=== PATIENT | female | born 1985 | race African-American/Black ===

== ENCOUNTER 2016-11-17 14:40 | Emergency (ER) | payer MEDICAID ==
[~2016-11-17] VITALS: Ht 154.9 cm; Wt 66.4 kg
[~2016-11-17 14:40] MED LIST: ADDE10 PO; ALPR1TAB3 PO; FEXO15TA PO; LAMO150T PO; LOMO2.5T PO; NORE1TAB PO; PRAV10TA PO; PROM25TA5 PO; RISP2TAB37 PO
[2016-11-17 14:42] VITALS: BP 123/59; PULSE 96; RESP 18; TEMP 98.7; O2SAT 98
--- NOTE | 2016-11-17 17:48 | PD ---
HPI Chief Complaint: GI Complaint Time Seen by Provider: 17:48 Travel History International Travel<30 days: No Contact w/Intl Traveler<30days: No Traveled to known affect area: No History of Present Illness HPI 31-year-old female presents to the ED for evaluation of 5 day history of body aches, sinus congestion, sore throat, nausea, nonbloody diarrhea. Gradual onset. She endorses chills, clear rhinorrhea, right-sided ear pressure, occasional nonproductive cough, increased urinary urgency. She denies headache , dizziness, neck pain, anorexia, vomiting, dysuria, vaginal discharge. Endorses similar symptoms and her daughter. She states that she lives in a house with black mold and thinks this may be the source of her medical problem. She denies risk of , states that she has not had sex with a male partner in years. PFSH Past Medical History Anxiety: Yes Diminished Hearing: No ?: Not LMP: 11/17/2016 : 3 Para: 3 : 1 Past Surgical History Section: Yes (x3) Gynecologic Surgery: Yes (C SECTION) Social History Alcohol Use: Yes (SOCIALLY) Tobacco Use: No Substance Use: No Allergies-Medications (Allergen,Severity, Reaction): Coded Allergies: No Known Allergies (Verified , 09/24/16) Reported Meds & Prescriptions Reported Meds & Active Scripts Active Imodium A-D (Loperamide HCl) 2 Mg Tab 2 Mg PO DIRECTED PRN One tablet after each loose stool. Not to exceed 8 tablets per day. Fluticasone Nasal [place] 50 Mcg/Act Naspr 100 Mcg EACH NARE DAILY 14 Days 50 mcg/spray Ibuprofen 600 Mg Tab 600 Mg PO Q8HR PRN Lomotil (Diphenoxylate-Atropine) 2.5-0.025 Mg Tab 1 Tab PO Q6H PRN Phenergan (Promethazine HCl) 25 Mg Tab 25 Mg PO Q6H PRN Necon /7/7 (Norethindrone-Ethinyl Estradiol) 0.5/0.75/1-35 Mg-Mcg Tab 1 Tab PO DAILY Pravastatin 10 Mg Tab 10 Mg PO DAILY Aniya Allergy (Fexofenadine HCl) 180 Mg Tab 180 Mg PO DAILY Reported Lamotrigine 150 Mg Tab 150 Mg PO DAILY Risperdal (Risperidone) 2 Mg Tab 2 Mg PO DAILY Alprazolam 1 Mg Tab 2 Mg PO BID PRN Adderall (Amphetamine-Dextroamphetamine) 10 Mg Tab 10 Mg PO BID Avoid late evening doses. Space doses at least 4 to 6 hours if more than once/day dosing. Review of Systems Except as stated in HPI: all other systems reviewed are Neg Physical Exam Narrative GENERAL: Well-nourished, well-developed nontoxic-appearing black female in no acute distress. SKIN: Warm and dry. Multiple facial and body piercings HEAD: Normocephalic. Atraumatic. EYES: No scleral icterus. No injection or drainage. PERRLA. EOMI. ENT: Pearly whit[place] tympanic membranes bilaterally. Nasal mucosa is moist, bluish , boggy. Oropharynx without erythema, edema or exudate. NECK: Supple, trachea midline. No JVD or lymphadenopathy. CARDIOVASCULAR: Regular rate and rhythm without murmurs, gallops, or rubs. 2+ DP and radial pulses bilaterally. RESPIRATORY: Breath sounds clear and equal bilaterally. No accessory muscle use. GASTROINTESTINAL: Abdomen soft, non-tender, nondistended. + Bowel sounds . Positive suprapubic tenderness. MUSCULOSKELETAL: No cyanosis, or edema. The patient is ambulatory, is observed to walk with a normal gait. BACK: Nontender without obvious deformity. No CVA tenderness. Data Data Last Documented VS Vital Signs Date Time Temp Pulse Resp B/P Pulse Ox O2 Delivery O2 Flow Rate FiO2 11/17/16 19:43 85 16 128/79 99 Room Air 11/17/16 14:42 98.7 Orders Influenzae A/B Antigen (11/17/16 17:21) Ibuprofen (Motrin) (11/17/16 18:15) Ondansetron Odt (Zofran Odt) (11/17/16 18:15) Urinalysis - C+S If Indicated (11/17/16 18:23) Complete Blood Count With Diff (11/17/16 18:23) Comprehensive Metabolic Panel (11/17/16 18:23) Potassium Chloride (Kcl) (11/17/16 19:30) Labs Laboratory Tests Test 11/17/16 11/17/16 18:30 18:40 White Blood Count 6.0 TH/MM3 Red Blood Count 3.87 MIL/MM3 Hemoglobin 12.4 GM/DL Hematocrit 36.9 % Mean Corpuscular Volume 95.3 FL Mean Corpuscular Hemoglobin 32.0 PG Mean Corpuscular Hemoglobin 33.6 % Concent Red Cell Distribution Width 12.3 % Platelet Count 249 TH/MM3 Mean Platelet Volume 8.9 FL Neutrophils (%) (Auto) 50.1 % Lymphocytes (%) (Auto) 43.1 % Monocytes (%) (Auto) 5.3 % Eosinophils (%) (Auto) 1.1 % Basophils (%) (Auto) 0.4 % Neutrophils # (Auto) 3.0 TH/MM3 Lymphocytes # (Auto) 2.6 TH/MM3 Monocytes # (Auto) 0.3 TH/MM3 Eosinophils # (Auto) 0.1 TH/MM3 Basophils # (Auto) 0.0 TH/MM3 CBC Comment DIFF FINAL Differential Comment Sodium Level 140 MEQ/L Potassium Level 3.1 MEQ/L Chloride Level 105 MEQ/L Carbon Dioxide Level 27.1 MEQ/L Anion Gap 8 MEQ/L Blood Urea Nitrogen 9 MG/DL Creatinine 0.90 MG/DL Estimat Glomerular Filtration 88 ML/MIN Rate Random Glucose 93 MG/DL Calcium Level 8.3 MG/DL Total Bilirubin 0.5 MG/DL Aspartate Amino Transf 13 U/L (AST/SGOT) Alanine Aminotransferase 15 U/L (ALT/SGPT) Alkaline Phosphatase 34 U/L Total Protein 6.4 GM/DL Albumin 3.4 GM/DL Urine Color YELLOW Urine Turbidity CLEAR Urine pH 6.5 Urine Specific [place] 1.021 Urine Protein TRACE mg/dL Urine Glucose (UA) NEG mg/dL Urine Ketones NEG mg/dL Urine Occult Blood NEG Urine Nitrite NEG Urine Bilirubin NEG Urine Urobilinogen 2.0 MG/DL Urine Leukocyte Esterase NEG Urine RBC 1 /hpf Urine WBC 3 /hpf Urine Squamous Epithelial 3 /hpf Cells Urine Mucus FEW /lpf Microscopic Urinalysis Comment CULT NOT INDICATED MDM Medical Decision Making Medical Screen Exam Complete: Yes Emergency Medical Condition: Yes Differential Diagnosis Environmental allergies versus viral syndrome versus mild exposure versus other Narrative Course 31-year-old female presents to the ED for evaluation of 5 day history of body aches, sinus congestion, sore throat, nausea, nonbloody diarrhea. Gradual onset. She endorses chills, clear rhinorrhea, right-sided ear pressure, occasional nonproductive cough, increased urinary urgency. She denies headache , dizziness, neck pain, anorexia, vomiting, dysuria, vaginal discharge. Endorses similar symptoms and her daughter. She states that she lives in a house with black mold and thinks this may be the source of her medical problem. Denies risk of . Vitals reviewed. Physical exam reveals a nontoxic- appearing black female in no acute distress. The nasal mucosa is bluish and boggy. Oropharynx without erythema, edema or exudates. Abdomen soft, mild suprapubic tenderness. Patient was administered ibuprofen, Zofran. CBC is unremarkable. CMP reveals hypokalemia 3.1. No indication for culture and UA. Influenza negative. Patient administered 40 mEq potassium by mouth. Review of the record reveals patient has been here multiple times with the same complaints. Patient was prescribed short course of Imodium, Flonase, ibuprofen. She is instructed to avoid known allergens, take medications as prescribed, follow up with the primary care. She indicated understanding of instructions. She is amenable to plan of care. She is stable and discharged home. Diagnosis Primary Impression: Nausea Additional Impressions: Mold exposure Diarrhea Qualified Code: R19.7 - Diarrhea, unspecified type Environmental allergies Hypokalemia, gastrointestinal losses Referrals: Primary Care Physician Patient Instructions: Acute Diarrhea (ED), General Instructions Additional Instructions: Rest, hydrate. Avoid exposure to mold as possible. Ibuprofen as needed for continued body aches. Utilize fluticasone spray 2 puffs in each nostril daily. Take Imodium as needed for continuing diarrhea. 2 tablets in the morning. One tablet after each episode of diarrhea. No more than 8 tablets daily. Follow-up with her primary care provider. Return to the ED for any urgent or emergent medical condition. Med/Other Pt SpecificInfo: Prescription(s) given Scripts Loperamide (Imodium A-D)2 Mg Tab2 Mg PO DIRECTED PRN (DIARRHEA) #6 TAB Ref 0 One tablet after each loose stool. Not to exceed 8 tablets per day. Prov:Chao Sullivan MD 11/17/16 Fluticasone Nasal [place] 50 Mcg/Act [id number] Mcg EACH NARE DAILY 14 Days Ref 0 50 mcg/spray Prov:Chao Sullivan MD 11/17/16 Ibuprofen 600 Mg [id number] Mg PO Q8HR PRN (PAIN) #12 TAB Ref 0 Prov:Chao Sullivan MD 11/17/16 Disposition: 01 DISCHARGE HOME Condition: Stable Suri Krishna Nov 17, 2016 17:48
[2016-11-17] MEDS ORDERED: ONDANSETRON ODT 4 MG TAB PO ONE (18:15)
[2016-11-17] MEDS ORDERED: IBUPROFEN 600 MG TAB PO ONE (18:15)
[2016-11-17 18:48] LABS: BASOPHIL % 0.4 % (0.0-2.0); EOSINOPHIL # 0.1 TH/MM3 (0-0.4); EOSINOPHIL % 1.1 % (0.0-4.0); HEMATOCRIT 36.9 % (35.0-46.0); HEMO FLAGS DIFF FINAL; LYMPH % 43.1 % (9.0-44.0); LYMPHOCYTE # 2.6 TH/MM3 (1.0-4.8); MEAN CELL VOLUME 95.3 FL (80.0-100.0); MEAN CORPUSCULAR HGB CONC 33.6 % (32.0-36.0); MONO % 5.3 % (0.0-8.0); NEUT % 50.1 % (16.0-70.0); PLATELET COUNT 249 TH/MM3 (150-450); RED BLOOD COUNT 3.87 MIL/MM3 (4.00-5.30); RED CELL DISTRIBUTION WIDTH 12.3 % (11.6-17.2)
[2016-11-17 19:03] LABS: ANION GAP 8 MEQ/L (5-15); AST (GOT) 13 U/L (15-37); BICARBONATE 27.1 MEQ/L (21.0-32.0); BLOOD UREA NITROGEN 9 MG/DL (7-18); CHLORIDE 105 MEQ/L (98-107); GLOMERULAR FILTRATION RATE 88 ML/MIN (>89); POTASSIUM 3.1 MEQ/L (3.5-5.1); SODIUM (NA) 140 MEQ/L (136-145)
[2016-11-17 19:07] LABS: ALKALINE PHOSPHATASE 34 U/L (45-117); ALT (GPT) 15 U/L (10-53); TOTAL BILIRUBIN ADULT 0.5 MG/DL (0.2-1.0)
[2016-11-17 19:10] LABS: BLOOD, URINE NEG (NEG); COMMENT (UR) CULT NOT INDICATED; CULTURE IF INDICATED CULT NOT INDICATED; GLUCOSE,URINE NEG (NEG); KETONE, URINE NEG (NEG); MUCUS URINE FEW /lpf (OCC); NITRITE,URINE NEG (NEG); PH, URINE 6.5 (5.0-8.5); SQUAMOUS EPITHELIAL CELL URINE 3 /hpf (0-5); URINE COLOR YELLOW (YELLW/STRAW)
[2016-11-17] MEDS ORDERED: IBUP-232 PO (19:28)
[2016-11-17] MEDS ORDERED: IMOD2TAB3 PO (19:28)
[2016-11-17] MEDS ORDERED: FLUT50SP EACH NARE (19:28)
[2016-11-17] MEDS ORDERED: POTASSIUM CHLORIDE 20 MEQ CONTROLLED RELEASE TAB PO ONE (19:30)
[2016-11-17 19:43] VITALS: BP 128/79; PULSE 85; RESP 16; O2SAT 99
[2016-12-21] MEDS ORDERED: GABA100C4 PO ×2 (09:22→15:01)
[2016-12-21] MEDS ORDERED: VALA1TAB PO ×2 (09:22→15:01)
[2017-01-30] MEDS ORDERED: NORE1TAB PO (16:02)
== END 2016-11-17 19:56 | disposition home or self-care (01) ==
LOC: NETRI 14:40
DX: R11.0 Nausea (principal); R19.7 Diarrhea, unspecified; J30.2 Other seasonal allergic rhinitis; E87.6 Hypokalemia; R05 Cough; R39.15 Urgency of urination; Z77.120 Contact with and (suspected) exposure to mold (toxic)
CPT/HCPCS: 80053; 81001; 85025; 87804; 99284

== ENCOUNTER 2016-12-02 13:13 | Emergency (ER) | payer MEDICAID, OTHER ==
[~2016-12-02] VITALS: Ht 154.9 cm; Wt 65.0 kg
[~2016-12-02 13:13] MED LIST changes: +FLUT50SP EACH NARE; +IBUP-232 PO; +IMOD2TAB3 PO
[2016-12-02 13:14] VITALS: BP 129/82; PULSE 84; RESP 14; TEMP 97.9; O2SAT 98
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
[2016-12-02 16:25] LABS: AUTOMATED NEUTROPHIL # 3.2 TH/MM3 (1.8-7.7); BASOPHIL % 0.6 % (0.0-2.0); EOSINOPHIL # 0.1 TH/MM3 (0-0.4); EOSINOPHIL % 0.8 % (0.0-4.0); HEMATOCRIT 41.1 % (35.0-46.0); HEMO FLAGS DIFF FINAL; LYMPH % 45.3 % (9.0-44.0); MEAN CELL VOLUME 93.6 FL (80.0-100.0); MEAN CORPUSCULAR HEMOGLOBIN 31.4 PG (27.0-34.0); MEAN CORPUSCULAR HGB CONC 33.6 % (32.0-36.0); MONO % 5.2 % (0.0-8.0); NEUT % 48.1 % (16.0-70.0); PLATELET COUNT 345 TH/MM3 (150-450); RED BLOOD COUNT 4.39 MIL/MM3 (4.00-5.30); RED CELL DISTRIBUTION WIDTH 12.3 % (11.6-17.2); WHITE BLOOD COUNT 6.5 TH/MM3 (4.0-11.0)
[2016-12-02 16:47] LABS: ALKALINE PHOSPHATASE 37 U/L (45-117); TOTAL BILIRUBIN ADULT 0.3 MG/DL (0.2-1.0)
[2016-12-02 16:50] LABS: ALT (GPT) 33 U/L (10-53); ANION GAP 6 MEQ/L (5-15); BICARBONATE 26.1 MEQ/L (21.0-32.0); BLOOD UREA NITROGEN 7 MG/DL (7-18); CHLORIDE 106 MEQ/L (98-107); GLOMERULAR FILTRATION RATE 105 ML/MIN (>89); SODIUM (NA) 138 MEQ/L (136-145)
[2016-12-02 16:52] LABS: ACETAMINOPHEN LESS THAN 2.0 MCG/ML (10.0-30.0); AST (GOT) 49 U/L (15-37)
[2016-12-02 19:09] LABS: AMPHETAMINE, URINE POS (NEG); BARBITURATES, URINE NEG (NEG); COCAINE, URINE NEG (NEG)
[2016-12-21] MEDS ORDERED: GABA100C4 PO ×2 (09:22→15:01)
[2016-12-21] MEDS ORDERED: VALA1TAB PO ×2 (09:22→15:01)
[2017-01-30] MEDS ORDERED: NORE1TAB PO (16:02)
== END 2016-12-02 19:30 | disposition home or self-care (01) ==
LOC: NEPA 13:13
DX: F32.9 Major depressive disorder, single episode, unspecified (principal)
CPT/HCPCS: 80053; 80307; 80320; 80329; 84703; 85025; 99284; G0480

== ENCOUNTER 2016-12-17 10:43 | Emergency (ER) | payer MEDICAID, OTHER ==
[~2016-12-17] VITALS: Ht 154.9 cm; Wt 67.0 kg
[~2016-12-17 10:43] MED LIST changes: -IMOD2TAB3 PO
[2016-12-17 10:45] VITALS: BP 129/86; PULSE 89; RESP 14; TEMP 98.2; O2SAT 98
[2016-12-17] MEDS ORDERED: ZITHTAB PO (12:02)
--- NOTE | 2016-12-17 12:03 | PD ---
HPI Chief Complaint: ENT Complaint Time Seen by Provider: 11:58 Travel History International Travel<30 days: No Contact w/Intl Traveler<30days: No Traveled to known affect area: No History of Present Illness HPI 31-year-old female presents to the emergency Department with complaint of left ear pain and a rash to her left eyebrow 4 days. She says that she was living in a house that was exposed to black mold and all the symptoms are from the black mold. Denies fever, chills, nausea, vomiting. Denies sore throat, nasal congestion. Has been taking ibuprofen for pain with good relief. She says the pain radiates from her ear to her head. No known allergies. No other modifying factors or associated signs and symptoms. PFSH Past Medical History Anxiety: Yes Diminished Hearing: No ?: Not LMP: LAST WEEK : 3 Para: 3 : 1 Past Surgical History Section: Yes (x3) Gynecologic Surgery: Yes (C SECTION) Social History Alcohol Use: Yes (SOCIALLY) Tobacco Use: No Substance Use: No Allergies-Medications (Allergen,Severity, Reaction): Coded Allergies: No Known Allergies (Verified , 12/17/16) Reported Meds & Prescriptions Reported Meds & Active Scripts Active Zithromax Z-Davion (Azithromycin) 250 Mg Dspk 250 Mg PO DIRECTED 500 MG (2 tabs) day 1, then 1 tab days 2-5. Fluticasone Nasal [place] 50 Mcg/Act Naspr 100 Mcg EACH NARE DAILY 14 Days 50 mcg/spray Ibuprofen 600 Mg Tab 600 Mg PO Q8HR PRN Lomotil (Diphenoxylate-Atropine) 2.5-0.025 Mg Tab 1 Tab PO Q6H PRN Phenergan (Promethazine HCl) 25 Mg Tab 25 Mg PO Q6H PRN Necon 7/7/7 (Norethindrone-Ethinyl Estradiol) 0.5/0.75/1-35 Mg-Mcg Tab 1 Tab PO DAILY Pravastatin 10 Mg Tab 10 Mg PO DAILY Aniya Allergy (Fexofenadine HCl) 180 Mg Tab 180 Mg PO DAILY Reported Lamotrigine 150 Mg Tab 150 Mg PO DAILY Risperdal (Risperidone) 2 Mg Tab 2 Mg PO DAILY Alprazolam 1 Mg Tab 2 Mg PO BID PRN Adderall (Amphetamine-Dextroamphetamine) 10 Mg Tab 10 Mg PO BID Avoid late evening doses. Space doses at least 4 to 6 hours if more than once/day dosing. Review of Systems Except as stated in HPI: all other systems reviewed are Neg Physical Exam Narrative GENERAL: Well-nourished, well-developed patient, in no acute distress; afebrile , nontoxic-appearing SKIN: Warm and dry. No rash. Small vesicular area noted to the left lateral eyebrow HEAD: Atraumatic. Normocephalic. EYES: Pupils equal and round at 3 mm with brisk reaction. No scleral icterus. No injection or drainage. PERRLA. ENT: Mucosa pink and moist. No erythema or exudates. No uvular edema. No uvular , palatal, or tonsillar deviation. Airway patent. EARS: Bilateral pinnae and external canals appear within normal limits. Bilateral tympanic membranes without erythema, dullness or perforation. Left ear tragus with tenderness on palpation and is firm to palpation and without erythema; left mastoid and ear without erythema, edema. No signs of cerumen impaction, foreign body, infection that is causing the patient's pain. NECK: Trachea midline. No lymphadenopathy. CARDIOVASCULAR: Regular rate. RESPIRATORY: No accessory muscle use. GASTROINTESTINAL: Flat. MUSCULOSKELETAL: No obvious deformities. No clubbing. No cyanosis. No edema. NEUROLOGICAL: Awake and alert. Oriented 3. No obvious cranial nerve deficits. Motor grossly within normal limits. Normal speech. Moves all extremities. 5/5 strength to all extremities. PSYCHIATRIC: Appropriate mood and affect; insight and judgment normal. Data Data Last Documented VS Vital Signs Date Time Temp Pulse Resp B/P Pulse Ox O2 Delivery O2 Flow Rate FiO2 12/17/16 10:45 98.2 89 14 129/86 98 [facility] Medical Decision Making Medical Screen Exam Complete: Yes Emergency Medical Condition: Yes Medical Record Reviewed: Yes Differential Diagnosis Otitis media, otitis externa, foreign body, cerumen impaction, less likely mastoiditis, shingles, skin herpes Narrative Course 31-year-old female with left ear pain. The left ears without signs of otitis media or externa. No cerumen impaction or foreign body. Patient is afebrile and nontoxic-appearing. She does have a small area of vesicular rash to the left lateral eyebrow which may be consistent with possible shingles outbreak. When I tried to discuss possible skin herpes/shingles secondary to the rash the patient became very rude, disruptive, and agitated and told me that she doesn't have herpes and she didn't come here to be told that nothing is wrong with her and she is demanding antibiotics. I excused myself from the room secondary to patient agitation and raising her voice at me. The patient will be prescribed antibiotics per her request. Instructed patient to follow up with cement based materials pump tender and primary care. Azithromycin prescribed for home. Patient is medically cleared and stable for discharge. Discussed reasons to return to the emergency department. Instructed patient to follow up with primary care provider. Patient agrees with treatment plan. The patients vital signs are stable and the patient is stable for outpatient follow-up and treatment. Patient discharged home, stable and in no acute distress. Diagnosis Primary Impression: Left ear pain Additional Impression: Rash and nonspecific skin eruption Referrals: Customer Contact Representative Primary Care Physician Patient Instructions: Acute Rash (ED), General Instructions Additional Instructions: Follow-up with cement based materials pump tender Follow-up with primary care provider Med/Other Pt SpecificInfo: Prescription(s) given Scripts Azithromycin (Zithromax Z-Davion)250 Mg [id number] Mg PO DIRECTED #1 DSPK Ref 0 500 MG (2 tabs) day 1, then 1 tab days 2-5. Prov:Tanisha Jerome 12/17/16 Disposition: 01 DISCHARGE HOME Condition: Stable Tanisha Jerome Dec 17, 2016 12:03
[2016-12-21] MEDS ORDERED: GABA100C4 PO ×2 (09:22→15:01)
[2016-12-21] MEDS ORDERED: VALA1TAB PO ×2 (09:22→15:01)
[2017-01-30] MEDS ORDERED: NORE1TAB PO (16:02)
== END 2016-12-17 12:33 | disposition home or self-care (01) ==
LOC: NEPB 10:43
DX: H92.02 Otalgia, left ear (principal); R21 Rash and other nonspecific skin eruption
CPT/HCPCS: 99282

== ENCOUNTER 2018-05-05 01:58 | Inpatient (IN) ==
--- NOTE | 2018-05-05 05:05 | ED ---
HPI General Chief Complaint: Psychiatric Symptoms Stated Complaint: Vol Psy/Back pain Time Seen by Provider: 05/05/18 04:32 Source: patient Mode of arrival: ambulatory Limitations: no limitations History of Present Illness HPI Narrative: 32-year-old black female presents emergency department on a voluntary basis for psychological evaluation. She states that she has been feeling depressed and having suicidal thoughts. She had contemplating driving her car off the bridge. She states that she has suffered with depression, anxiety, and ADHD. She is a single parent with 3 children. Her father was murdered 3 years ago and they have not find his murder. His throat was slashed. Her mother last September. She denies any fever chills. No chest pain shortness of breath. She claims that she is compliant with her medications. She denies any alcohol or tobacco. No drugs. Symptoms are moderate. No alleviating factors. Exacerbated by family issues. Related Data Home Medications Medication Instructions Recorded Confirmed alprazolam [Xanax] 2 mg PO BID 05/06/18 05/06/18 dextroamphetamine-amphetamine 10 mg PO BID 05/06/18 05/06/18 [Adderall] diazepam [Valium] 5 mg PO DAILY 05/06/18 05/06/18 lamotrigine 150 mg PO DAILY 05/06/18 05/06/18 risperidone [Risperdal] 0.25 mg PO DAILY 05/06/18 05/06/18 risperidone [Risperdal] 2 mg PO HS 05/06/18 05/06/18 Allergies Allergy/AdvReac Type Severity Reaction Status Date / Time trazodone Allergy Swelling Verified 05/05/18 02:32 of Lip/Tongue/Throat Review of Systems Except as stated in HPI: all other systems reviewed are negative PMFSH History History Provided By: Patient Medical History Medical History ADHD (attention deficit hyperactivity disorder) (Acute) Anxiety (Acute) Bipolar 1 disorder (Acute) Depression (Acute) ADIEL (generalized anxiety disorder) (Acute) Insomnia (Acute) Psychosis (Acute) Social History Social History Substance History: No History of Abuse Second Hand Smoke Exposure: No Smoking Status: Never smoker How Often Do You Have a Drink Containing Alcohol: Never Recent Travel in [place] within the Last 8 Weeks: No Recent Out of Country Travel within the Last 8 Weeks: No Exam Narrative Exam Narrative: GENERAL: Well-nourished, well-developed patient. SKIN: Warm and dry. HEAD: Normocephalic and atraumatic. EYES: No scleral icterus. No injection or drainage. ENT: No nasal drainage noted. Mucous membranes pink. Airway patent. NECK: Supple, trachea midline. Moves head freely without obvious discomfort. CARDIOVASCULAR: Regular rate and rhythm without murmurs, gallops, or rubs. RESPIRATORY: Breath sounds equal bilaterally. No accessory muscle use. GASTROINTESTINAL: Abdomen soft, non-tender, nondistended. EXTREMITIES: No cyanosis or edema. BACK: Nontender without obvious deformity. No CVA tenderness. NEURO: Patient is alert and oriented. no sensorimotor deficits. Nonfocal. Normal speech. PSYCH: No delusions. No auditory or visual hallucinations. Course Hospital Course: The patient initially states that she would like to leave. She is feeling improved. I have advised her to stay talk with the psych screener. Initial Documented Vital Signs Temperature 98.5 F 05/05/18 02:32 Pulse Rate 101 H 05/05/18 02:32 Respiratory Rate 16 05/05/18 02:32 Blood Pressure 138/83 05/05/18 02:32 Pulse Oximetry 100 05/05/18 02:32 Last Documented Vital Signs Temperature 98.5 F 05/05/18 02:32 Pulse Rate 102 H 05/05/18 19:25 Respiratory Rate 18 05/06/18 01:00 Blood Pressure 137/74 05/05/18 19:25 Pulse Oximetry 100 05/05/18 19:25 Medical Decision Making Differential Diagnosis Differential Diagnosis: MDM: High Differential diagnoses: Schizophrenia, schizoaffective disorder, bipolar, anxiety, depression, adjustment reaction, mood disorder NOS, ODD, depressive disorder NOS, dementia, dementia with agitation, psychosis NOS, substance induced mood disorder, DMDD, Asperger syndrome, infection,electrolyte abnormality, malingering. Mental health screening discussed with the patient. Psychiatric screen ordered. Discharge Plan Discharge Disposition Patient Disposition: 30 Still Patient Discharge Condition Condition: Stable Discharge Details Anticipated Discharge Date: 05/06/18 Diagnosis: Depression Physicians Team ED Provider: Joe Johnston ED Midlevel Provider: Nicho Hou Primary Care Provider: UNKNOWN, Attending Provider: Vineet Avila Discharge Interventions Interventions: Vital Signs Last Done: 05/06/18 01:00 Status ED Status: Admitted Patient
[2018-05-05] MEDS ORDERED: Ibuprofen 600 MG Tablet PO ONE (22:15)
[2018-05-06 02:48] LABS: Amphetamine Screen,Urine Neg (Neg); Barbiturate Screen,Urine Neg (Neg); Cannabinoid Screen,Urine Neg (Neg); Cocaine Screen,Urine Neg (Neg)
[2018-05-06 02:50] LABS: Opiate Screen,Urine Neg (Neg)
[2018-05-06] MEDS ORDERED: Aluminum/Magnesium/Simethacone Susp 30 ML UDC PO PRN (03:05)
[2018-05-06] MEDS: Acetaminophen 325 MG Tablet PO PRN ×2 (03:36→18:01)
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
[2018-05-06 08:14] LABS: Baso % (Auto) 0.5 % (0.0-2.0); Eos # (Auto) 0.1 th/mm3 (0.0-0.4); Hematocrit 35.5 % (35.0-46.0); Hemoglobin 12.3 gm/dL (11.6-15.3); Lymph # (Auto) 3.2 th/mm3 (1.0-4.8); Mean Corpuscular HGB Conc 34.5 % (32.0-36.0); Mean Corpuscular Hemoglobin 31.9 pg (27.0-34.0); Mean Corpuscular Volume 92.3 fL (80.0-100.0); Mean Platelet Volume 9.5 fL (7.0-11.0); Mono # (Auto) 0.4 th/mm3 (0.0-0.9); Mono % (Auto) 6.2 % (0.0-8.0); Neut # (Auto) 2.1 th/mm3 (1.8-7.7); Neut % (Auto) 36.3 % (16.0-70.0); Platelet Count 228 th/mm3 (150-450); Red Blood Count 3.85 mil/mm3 (4.00-5.30); Red Cell Distribution Width 12.8 % (11.6-17.2); White Blood Count 5.9 th/mm3 (4.0-11.0)
[2018-05-06 08:27] LABS: Alanine Aminotransferase 16 U/L (10-53); Albumin 3.1 g/dL (3.4-5.0); Anion Gap 6 meq/L (5-15); Aspartate Aminotransferase 18 U/L (15-37); Blood Urea Nitrogen 10 mg/dL (7-18); Calcium 8.1 mg/dL (8.5-10.1); Carbon Dioxide 25.2 meq/L (21.0-32.0); Chloride 108 meq/L (98-107); Cholesterol 157 mg/dL (120-200); Glomerular Filtration Rate Greater Than 89 mL/min (>89); Glucose,Random 83 mg/dL (74-106); Potassium 3.7 meq/L (3.5-5.1); Sodium 139 meq/L (136-145); Triglycerides 75 mg/dL (42-150)
[2018-05-06 08:37] LABS: Alkaline Phosphatase 41 U/L (45-117); Chol/HDL Ratio 3.25 Ratio; HDL Cholesterol 48.2 mg/dL (40.0-60.0); LDL Cholesterol,Calculated 94 mg/dL (0-99); Total Protein 6.6 g/dL (6.4-8.2)
[2018-05-06] MEDS: lamoTRIgine 100 MG Tablet PO SCH (08:43)
[2018-05-06 11:53] LABS: Hemoglobin A1c 4.7 % (4.3-6.0)
[2018-05-07] MEDS: lamoTRIgine 100 MG Tablet PO SCH ×2 (08:58→11:56)
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
== END 2018-05-07 15:05 | disposition home or self-care (01) ==
LOC: NEPD 01:58 → NEDA 05-06 01:32 → H260 05-06 02:48
PROVIDERS: ADMIT Psychiatry & Neurology Psychiatry; ATTEND Psychiatry & Neurology Psychiatry